=== PATIENT | female | born 1985 ===

== ENCOUNTER 2022-12-24 12:30 | Inpatient (IN) ==
[2022-12-24 13:01] LABS: Basophils % 0.2 % (0.0-0.8); Eosinophils # 0.1 10*3/uL (0.0-0.87); Eosinophils % 1.4 % (0.00-10.9); Hematocrit 37.3 VOL% (35.7-47.0); Hemoglobin 12.8 GM/DL (12.0-16.0); Immature Granulocytes % 1.1 %; Immature Granulocytes Absolute 0.07 #; Lymphocytes # 1.6 10*3/uL (1.4-4.0); Mean Corpuscular HGB Conc 34.3 GM/DL (32-36); Mean Corpuscular Volume 94.4 FL (87-102); Mean Platelet Volume 11.3 FL (9.6-12.0); Monocytes # 0.5 10*3/uL (0.11-0.8); Monocytes % 8.3 % (1.7-12.7); Platelet Count 229 T/CUMM (130-400); Red Blood Count 3.95 MC/CUMM (3.8-5.5); Red Cell Distribution Width 13.5 % (9.3-17.3); White Blood Count 6.52 T/CUMM (4-12)
[2022-12-24 13:08] LABS: Bacteria,Urine Occasional /HPF (Few); Mucus,Urine Many /LPF (Occasional); RBC,Urine <1 /HPF (0-4); Squamous Epithelial Cell,Urine Occasional /HPF (0-10)
[2022-12-24 13:09] LABS: Glucose,Urine (UA) Negative (Negative); Ketones,Urine 15 mg/dL (Negative); Protein,Urine 100 mg/dL (Negative); Urine Appearance Clear (Clear); Urine Color Yellow (Yellow); Urine Specific Gravity > 1.030 (1.001-1.035)
[2022-12-24 13:10] LABS: Bilirubin,Urine Negative (Negative); Blood, Urine Negative (Negative); Nitrite,Urine Negative (Negative)
[2022-12-24 13:15] LABS: INR 0.9; PT Patient Result 9.5 SECS (10.1-12.1); Partial Thromboplastin Time 26.4 SECS (23.7-32.9)
[2022-12-24 13:26] LABS: Alanine Aminotransferase 33 U/L (13-56); Albumin 2.5 G/DL (3.4-5.0); Alkaline Phosphatase 261 U/L (45-117); Aspartate Amino Transferase 27 U/L (0-37); Bilirubin,Total < 0.39 MG/DL (0.20-1.00); Blood Urea Nitrogen 11 MG/DL (7-18); Calcium 8.7 MG/DL (8.5-10.1); Carbon Dioxide 21 MMOL/L (21-32); Chloride 112 MMOL/L (98-107); Glucose 74 MG/DL (74-106); Osmolality,Calculated 276.4 MOS/KG (273-304); Sodium 140 MMOL/L (136-145); Total Protein 6.5 G/DL (6.4-8.2); Uric Acid 4.7 MG/DL (2.6-6.0)
[2022-12-24 14:00] LABS: Protein/Creatinine Ratio,Urine 0.3 RATIO
[2022-12-24] MEDS ORDERED: NIFEdipine 10 MG CAPSULE PO ONE ×3 (15:10→23:43)
[2022-12-24] MEDS: LABETALOL 200 MG TABLET PO SCH (17:06)
[2022-12-24] MEDS ORDERED: ACETAMINOPHEN 500 MG TABLET PO ONE (22:11)
[2022-12-25] MEDS: LABETALOL 200 MG TABLET PO SCH ×2 (04:37→05:31)
[2022-12-25] MEDS ORDERED: CARBOPROST TROMETHAMINE 250 MCG/ML AMP IM PRN (05:21)
[2022-12-25] MEDS ORDERED: TRANEXAMIC ACID 1,000 MG in SODIUM CHLORIDE 0.9% 100 ML IV PRN (05:21)
[2022-12-25] MEDS ORDERED: METHYLERGONOVINE 0.2 MG/1 ML AMP IM PRN (05:21)
[2022-12-25] MEDS ORDERED: miSOPROStoL 200 MCG TABLET RECTAL PRN (05:21)
[2022-12-25] MEDS ORDERED: OXYTOCIN/LR 20 UNIT/1,000 ML BAG IV ONE ×2 (05:21→09:44)
[2022-12-25] MEDS ORDERED: LACTATED RINGERS 1,000 ML IV SCH ×2 (05:30→10:00)
[2022-12-25 05:46] LABS: Basophils % 0.3 % (0.0-0.8); Eosinophils # 0.1 10*3/uL (0.0-0.87); Eosinophils % 1.7 % (0.00-10.9); Hematocrit 36.8 VOL% (35.7-47.0); Hemoglobin 12.7 GM/DL (12.0-16.0); Immature Granulocytes % 1.3 %; Immature Granulocytes Absolute 0.08 #; Lymphocytes # 1.6 10*3/uL (1.4-4.0); Lymphocytes % 27.4 % (21.3-54.2); Mean Corpuscular HGB Conc 34.5 GM/DL (32-36); Mean Corpuscular Volume 93.9 FL (87-102); Mean Platelet Volume 10.9 FL (9.6-12.0); Monocytes # 0.5 10*3/uL (0.11-0.8); Monocytes % 8.2 % (1.7-12.7); Neutrophils % 61.1 % (38.7-73.9); Platelet Count 199 T/CUMM (130-400); Red Blood Count 3.92 MC/CUMM (3.8-5.5); Red Cell Distribution Width 13.5 % (9.3-17.3); White Blood Count 5.95 T/CUMM (4-12)
[2022-12-25 06:12] LABS: Albumin 2.3 G/DL (3.4-5.0); Bilirubin,Total 0.4 MG/DL (0.20-1.00); Calcium 8.6 MG/DL (8.5-10.1); Osmolality,Calculated 274.5 MOS/KG (273-304); Potassium 3.7 MMOL/L (3.5-5.1); Total Protein 6.2 G/DL (6.4-8.2)
[2022-12-25 06:59] LABS: RPR Confirm - Less than 1 yr NONREACTIVE (Nonreactive)
[2022-12-25] MEDS ORDERED: OXYTOCIN/LR 30 UNIT/1,000 ML BAG IV ONE (07:09)
[2022-12-25] MEDS ORDERED: OXYTOCIN 10 UNIT/ML VIAL IM ONE ×2 (07:09→08:57)
[2022-12-25] MEDS ORDERED: TRANEXAMIC ACID 1,000 MG/10 ML VIAL ONE (07:12)
[2022-12-25] MEDS ORDERED: miSOPROStoL 200 MCG TABLET ONE (07:12)
[2022-12-25] MEDS ORDERED: METHYLERGONOVINE 0.2 MG/1 ML AMP ONE (07:13)
[2022-12-25] MEDS ORDERED: CARBOPROST TROMETHAMINE 250 MCG/ML AMP IM ONE (07:13)
[2022-12-25] MEDS ORDERED: FAMOTIDINE 20 MG/2 ML VIAL IV ONE (07:30)
[2022-12-25] MEDS ORDERED: ceFAZolin 2,000 MG/50 ML DUPLEX IV ONE (07:30)
[2022-12-25] MEDS ORDERED: CITRIC ACID/SODIUM CITRATE 30 ML UDCUP PO ONE (07:30)
[2022-12-25 08:07] LABS: HIV Antigen/Antibody Result Nonreactive (Nonreactive)
[2022-12-25] MEDS ORDERED: KETOROLAC 30 MG/1 ML VIAL ONE (08:13)
[2022-12-25] MEDS ORDERED: ACETAMINOPHEN INJ 1,000 MG/100 ML VIAL IV ONE (08:13)
[2022-12-25] MEDS ORDERED: buprenorphine HCL 0.3 MG/ML VIAL ONE (08:13)
[2022-12-25] MEDS ORDERED: ONDANSETRON 4 MG/2 ML VIAL ONE (08:13)
[2022-12-25] MEDS ORDERED: DEXAMETHASONE 4 MG/1 ML VIAL ONE (08:13)
[2022-12-25] MEDS ORDERED: LACTATED RINGERS 1,000 ML IV ONE (08:39)
[2022-12-25] MEDS ORDERED: PHENYLEPHRINE 1 MG/10 ML SYRINGE IV ONE (08:45)
[2022-12-25 09:09] LABS: Cord Arterial Blood HCO3 22.3 MMOL/L
[2022-12-25 09:11] LABS: Cord Venous Blood HCO3 22.8 MMOL/L; Cord Venous Blood PCO2 46.5 MMHG; Cord Venous Blood PO2 33.3
[2022-12-25] MEDS ORDERED: ONDANSETRON 4 MG/2 ML VIAL IV PRN (09:44)
[2022-12-25] MEDS ORDERED: SIMETHICONE CHEW 80 MG TABLET PO PRN (09:44)
[2022-12-25] MEDS ORDERED: ACETAMINOPHEN 325 MG TABLET PO PRN (09:44)
[2022-12-25] MEDS ORDERED: RHO(D) IMMUNE GLOBULIN 300 MCG SYRINGE IM ONE (09:44)
[2022-12-25] MEDS ORDERED: NIFEdipine 10 MG CAPSULE PO ONE ×2 (10:49→21:23)
[2022-12-25 13:42] LABS: Bilirubin,Urine Small mg/dL (Negative); Glucose,Urine (UA) Negative (Negative); Ketones,Urine Trace mg/dL (Negative); Nitrite,Urine Negative (Negative); Protein,Urine 100 mg/dL (Negative); Urine Appearance Clear (Clear); Urine Color Yellow (Yellow); Urine pH 7.5 (4.5-8.0)
[2022-12-25 13:43] LABS: Blood, Urine Negative (Negative)
[2022-12-25 13:45] LABS: Mucus,Urine Occasional /LPF (Occasional); RBC,Urine 2 /HPF (0-4); Squamous Epithelial Cell,Urine Occasional /HPF (0-10)
[2022-12-25] MEDS ORDERED: KETOROLAC 30 MG/1 ML VIAL IV SCH (15:00)
[2022-12-25] MEDS ORDERED: ACETAMINOPHEN 500 MG TABLET PO SCH (15:00)
[2022-12-25 15:07] LABS: Rubella Antibody IgG Result Reactive (NonReactive)
[2022-12-25] MEDS: HYDROmorphone 1 MG/1 ML SYRINGE IV PRN ×2 (15:32→22:37)
[2022-12-25 17:30] LABS: Basophils % 0.1 % (0.0-0.8); Hematocrit 37.2 VOL% (35.7-47.0); Hemoglobin 12.7 GM/DL (12.0-16.0); Immature Granulocytes % 0.9 %; Immature Granulocytes Absolute 0.12 #; Lymphocytes # 1.2 10*3/uL (1.4-4.0); Lymphocytes % 8.7 % (21.3-54.2); Mean Corpuscular HGB Conc 34.1 GM/DL (32-36); Mean Corpuscular Volume 94.4 FL (87-102); Mean Platelet Volume 10.9 FL (9.6-12.0); Monocytes # 0.6 10*3/uL (0.11-0.8); Monocytes % 4.5 % (1.7-12.7); Neutrophils % 85.8 % (38.7-73.9); Platelet Count 232 T/CUMM (130-400); Red Blood Count 3.94 MC/CUMM (3.8-5.5); Red Cell Distribution Width 13.4 % (9.3-17.3); White Blood Count 14.05 T/CUMM (4-12)
[2022-12-25] MEDS: FUROSEMIDE 40 MG/4 ML VIAL IV SCH (21:43)
[2022-12-25] MEDS: DOCUSATE SODIUM 100 MG CAPSULE PO SCH (22:56)
[2022-12-26] MEDS: FUROSEMIDE 40 MG/4 ML VIAL IV SCH ×2 (03:24→09:05)
[2022-12-26 05:40] LABS: Basophils % 0.3 % (0.0-0.8); Eosinophils % 0.4 % (0.00-10.9); Hemoglobin 13.3 GM/DL (12.0-16.0); Immature Granulocytes % 2.6 %; Immature Granulocytes Absolute 0.26 #; Lymphocytes # 2.1 10*3/uL (1.4-4.0); Lymphocytes % 20.8 % (21.3-54.2); Mean Corpuscular HGB Conc 34.1 GM/DL (32-36); Mean Corpuscular Volume 95.4 FL (87-102); Mean Platelet Volume 10.8 FL (9.6-12.0); Monocytes % 9.7 % (1.7-12.7); Neutrophils % 66.2 % (38.7-73.9); Platelet Count 249 T/CUMM (130-400); Red Blood Count 4.09 MC/CUMM (3.8-5.5); Red Cell Distribution Width 13.5 % (9.3-17.3); White Blood Count 10.09 T/CUMM (4-12)
[2022-12-26 06:56] LABS: Hepatitis B Surface Ag Quant < 0.10 Index; Hepatitis B Surface Ag Result Non-Reactive (NonReactive)
[2022-12-26] MEDS: MAGNESIUM HYDROXIDE SUSP 30 ML UDCUP PO PRN ×2 (08:59→20:08)
[2022-12-26] MEDS: DOCUSATE SODIUM 100 MG CAPSULE PO SCH ×2 (08:59→20:08)
[2022-12-26] MEDS: MULTIVITAMIN (PRENATAL) TABLET PO SCH (08:59)
[2022-12-26] MEDS: oxyCODONE/ACETAMINOPHEN 5-325 MG TABLET PO PRN (20:06)
[2022-12-26] MEDS: IBUPROFEN 800 MG TABLET PO PRN (20:07)
[2022-12-26] MEDS: METOCLOPRAMIDE 10 MG TABLET PO SCH (20:08)
[2022-12-26] MEDS ORDERED: HydrOXYzine PAMOATE 25 MG CAPSULE PO ONE (23:08)
[2022-12-27] MEDS: METOCLOPRAMIDE 10 MG TABLET PO SCH ×3 (03:50→20:34)
[2022-12-27] MEDS: oxyCODONE/ACETAMINOPHEN 5-325 MG TABLET PO PRN ×3 (03:51→18:10)
[2022-12-27] MEDS: MULTIVITAMIN (PRENATAL) TABLET PO SCH (08:36)
[2022-12-27] MEDS: DOCUSATE SODIUM 100 MG CAPSULE PO SCH ×2 (08:37→20:35)
[2022-12-27] MEDS: MAGNESIUM HYDROXIDE SUSP 30 ML UDCUP PO PRN ×2 (08:37→11:10)
[2022-12-27] MEDS: IBUPROFEN 800 MG TABLET PO PRN ×2 (12:53→21:12)
[2022-12-27] MEDS: LORazepam 0.5 MG TABLET PO PRN ×2 (13:57→21:36)
[2022-12-28] MEDS: METOCLOPRAMIDE 10 MG TABLET PO SCH ×3 (06:34→20:23)
[2022-12-28] MEDS: MULTIVITAMIN (PRENATAL) TABLET PO SCH ×2 (07:22→11:14)
[2022-12-28] MEDS: DOCUSATE SODIUM 100 MG CAPSULE PO SCH ×3 (07:22→21:09)
[2022-12-28] MEDS: oxyCODONE/ACETAMINOPHEN 5-325 MG TABLET PO PRN ×2 (07:24→21:07)
[2022-12-28] MEDS: IBUPROFEN 800 MG TABLET PO PRN ×2 (14:41→23:57)
[2022-12-28] MEDS: LORazepam 0.5 MG TABLET PO PRN (21:09)
[2022-12-29] MEDS: METOCLOPRAMIDE 10 MG TABLET PO SCH (06:30)
[2022-12-29 07:35] VITALS: BP 149/86
[2022-12-29] MEDS: DOCUSATE SODIUM 100 MG CAPSULE PO SCH (10:12)
[2022-12-29] MEDS: MULTIVITAMIN (PRENATAL) TABLET PO SCH (10:12)
== END 2022-12-29 12:50 | disposition home or self-care (01) | DRG 785 ==
LOC: N.LDOUT 12:30 → N.LD 12:34 → N.OB 12-25 13:40
PROVIDERS: ADMIT Obstetrics & Gynecology; ATTEND Obstetrics & Gynecology